=== PATIENT | female | born 1950 | race Caucasian/White ===

== ENCOUNTER → 2022-02-23 | Outpatient (CLI) | payer MEDICARE ==
[~2022-02-23] MED LIST: ACET650T61 PO; CALC600T61 PO; CHOL25TA9 PO; EUTH75TA PO; GABA-283 PO; HOME MED LIST COMPLETE! XX SCH; LIDOCAINE 1% MDV 20ML VIAL As Ordered ONE; ROSU5TAB5 PO; VITA500C19 PO
[2022-02-23 11:00] VITALS: BP 124/63
== END ==
LOC: M IRPRO 07:39
PROVIDERS: ATTEND Internal Medicine Pulmonary Disease
DX: C34.32 Malignant neoplasm of lower lobe, left bronchus or lung (principal)

== ENCOUNTER → 2022-04-09 | Outpatient (CLI) | payer MEDICARE ==
[~2022-04-09] MED LIST changes: +B-10TAB2 PO; -HOME MED LIST COMPLETE! XX SCH; +MIDAZOLAM INJ 2MG/2ML VIAL (J2250 PER 1MG) As Ordered ONE; +NS 1,000 ML IV SCH; +ONDA-83 PO; +ceFAZolin 2 GM/D5W 50 ML IV BAG (J0690 PER 500MG) As Ordered ONE; +ceFAZolin SOD 2 GM in IV 1 EA IV ONE; +diphenhydrAMINE 50MG/ML VIAL (J1200) As Ordered ONE; +fentaNYL 100 MCG/2 ML INJECTION As Ordered ONE
[2022-04-09 16:45] VITALS: BP 133/62
== END ==
LOC: M IRPRO 11:50
PROVIDERS: ATTEND Internal Medicine Medical Oncology
DX: C45.0 Mesothelioma of pleura (principal)
CPT/HCPCS: 36561; 99152; 99153; C1769; C1788; C1894; J0690; J1200; J1642; J1644; J2250; J3010

== ENCOUNTER → 2022-05-05 | Outpatient (POV) | payer MEDICARE ==
[~2022-05-05] VITALS: Ht 157.5 cm; Wt 72.7 kg
[~2022-05-05] MED LIST changes: -LIDOCAINE 1% MDV 20ML VIAL As Ordered ONE; -MIDAZOLAM INJ 2MG/2ML VIAL (J2250 PER 1MG) As Ordered ONE; -NS 1,000 ML IV SCH; -ceFAZolin 2 GM/D5W 50 ML IV BAG (J0690 PER 500MG) As Ordered ONE; -ceFAZolin SOD 2 GM in IV 1 EA IV ONE; -diphenhydrAMINE 50MG/ML VIAL (J1200) As Ordered ONE; -fentaNYL 100 MCG/2 ML INJECTION As Ordered ONE
[2022-05-05 11:30] VITALS: BP 124/57
== END ==
LOC: M IRPOV 10:57
PROVIDERS: ATTEND Radiology Diagnostic Radiology
DX: Z45.2 Encounter for adjustment and management of vascular access device (principal)

== ENCOUNTER → 2022-08-11 | Outpatient (CLI) | payer MEDICARE ==
[~2022-08-11] MED LIST changes: +BENZ200C70; +CEPH500T PO; +ELIQ5TAB PO; +ENOX60IN3; +FURO40TA2; +LEVO100T5 PO; +ROPI0.253; +ROPI0.253 PO; +SFHHYD1CR TOP; +SODI1TAB12 PO
== END ==
LOC: M PLARAD 10:47
PROVIDERS: ATTEND Internal Medicine Medical Oncology
DX: C45.7 Mesothelioma of other sites (principal); J90 Pleural effusion, not elsewhere classified; R60.1 Generalized edema; R59.0 Localized enlarged lymph nodes
CPT/HCPCS: 78815; A9552